=== PATIENT | male | born 1955 | race Caucasian/White ===

== ENCOUNTER 2018-10-08 09:41 | Day surgery (SDC) | payer OTHER ==
[~2018-10-08] VITALS: Ht 175.3 cm; Wt 102.1 kg
[~2018-10-08 09:41] MED LIST: FAMO40TA3 PO; LISI-542 PO; MULTCAP PO; NS 1,000 ML IV ONE
[2018-10-08] MEDS ORDERED: PROPOFOL 500 MG/50 ML VIAL As Ordered ONE (10:26)
[2018-10-08] MEDS ORDERED: fentaNYL 100 MCG/2 ML INJECTION (J3010) As Ordered ONE (10:27)
[2018-10-08] MEDS ORDERED: LIDOCAINE 2% INJ 100 MG/5 ML SDV (FOR ANES.) As Ordered ONE (10:36)
--- NOTE | 2018-10-08 11:32 | ROOR ---
Patient Name: Paul Calhoun Procedure Date: 10/08/2018 11:21 AM Date of : 1955 Age: 62 Room: [facility] Gender: Male Note Status: Finalized Procedure: Upper Endoscopy + Biopsies Indications: Heartburn, Exclusion of Adamson's esophagus Providers: Pete Tipton MD Referring MD: DARCY ORR DO Requesting Provider: Medicines: Monitored Anesthesia Care Complications: No immediate complications. Procedure: Pre-Anesthesia Assessment: - The heart rate, respiratory rate, oxygen saturations, blood pressure, adequacy of pulmonary ventilation, and response to care were monitored throughout the procedure. The Endoscope was introduced through the mouth, and advanced to the second part of duodenum. The upper GI endoscopy was accomplished without difficulty. The patient tolerated the procedure well. Findings: The Z-line was variable and was found 40 cm from the incisors. Multiple biopsies were obtained with cold forceps for evaluation to rule out Adamson's Esophagus randomly at the gastroesophageal junction. A small hiatal hernia was present. A few localized, small non-bleeding erosions were found in the gastric antrum. There were no stigmata of recent bleeding. Biopsies were taken with a cold forceps for Helicobacter pylori testing. The exam of the duodenum was otherwise normal. Impression: - Z-line variable, 40 cm from the incisors. - Small hiatal hernia. - Non-bleeding erosive gastropathy. Biopsied. - Multiple biopsies were obtained at the gastroesophageal junction. - The examination was otherwise normal. Recommendation: - Patient has a contact number available for emergencies. The signs and symptoms of potential delayed complications were discussed with the patient. Return to normal activities tomorrow. Written discharge instructions were provided to the patient. - High fiber diet. - Discharge patient to home. - Continue present medications. - Await pathology results. - Telephone GI clinic for pathology results in 1 week. - Repeat upper endoscopy for surveillance based on pathology results. - Return to referring physician. - The findings and recommendations were discussed with the patient's family. Pete Tipton MD Pete Tipton MD 10/08/2018 11:31:44 AM Electronically signed by Pete Tipton MD Number of Addenda: 0 Note Initiated On: 10/08/2018 11:21 AM Estimated Blood Loss: Estimated blood loss: none.
--- NOTE | 2018-10-08 11:57 | ROOR ---
Patient Name: Paul Calhoun Procedure Date: 10/08/2018 11:22 AM Date of : 1955 Age: 62 Room: [facility] Gender: Male Note Status: Finalized Procedure: Total Colonoscopy to Cecum + Cold Snare Polypectomy + Hemoclip Indications: Screening for colorectal malignant neoplasm, Last colonoscopy 10 years ago Providers: Pete Tipton MD Referring MD: DARCY ORR DO Requesting Provider: Medicines: Monitored Anesthesia Care Complications: No immediate complications. Procedure: Pre-Anesthesia Assessment: - The heart rate, respiratory rate, oxygen saturations, blood pressure, adequacy of pulmonary ventilation, and response to care were monitored throughout the procedure. The Colonoscope was introduced through the anus and advanced to the cecum, identified by appendiceal orifice and ileocecal valve. The colonoscopy was performed without difficulty. The patient tolerated the procedure well. The quality of the bowel preparation was excellent. Findings: The perianal and digital rectal examinations were normal. Non-bleeding internal hemorrhoids were found during retroflexion. The hemorrhoids were small and Grade I (internal hemorrhoids that do not prolapse). Scattered small-mouthed diverticula were found in the recto-sigmoid colon, sigmoid colon and descending colon. Two sessile polyps were found in the ascending colon. The polyps were small in size. These polyps were removed with a cold snare. Resection and retrieval were complete. To prevent bleeding after the polypectomy, one hemostatic clip was successfully placed (MR conditional). There was no bleeding at the end of the procedure. The exam was otherwise without abnormality on direct and retroflexion views. Impression: - Non-bleeding internal hemorrhoids. - Diverticulosis in the recto-sigmoid colon, in the sigmoid colon and in the descending colon. - Two small polyps in the ascending colon, removed with a cold snare. Resected and retrieved. Clip (MR conditional) was placed. - The examination was otherwise normal on direct and retroflexion views. - The exam was otherwise normal to the cecum. Recommendation: - Patient has a contact number available for emergencies. The signs and symptoms of potential delayed complications were discussed with the patient. Return to normal activities tomorrow. Written discharge instructions were provided to the patient. - High fiber diet. - Discharge patient to home. - Continue present medications. - Await pathology results. - Telephone GI clinic for pathology results in 1 week. - Repeat colonoscopy in 5 years for surveillance based on pathology results. - Return to referring physician. - The findings and recommendations were discussed with the patient's family. Pete Tipton MD Pete Tipton MD 10/08/2018 11:57:05 AM Electronically signed by Pete Tipton MD Number of Addenda: 0 Note Initiated On: 10/08/2018 11:22 AM Estimated Blood Loss: Estimated blood loss: none.
[2018-10-08 12:20] VITALS: BP 137/87
== END 2018-10-08 12:34 | disposition home or self-care (01) ==
LOC: M OPP 09:41
PROVIDERS: ATTEND Internal Medicine Gastroenterology
DX: Z12.11 Encounter for screening for malignant neoplasm of colon (principal); K64.0 First degree hemorrhoids; K57.30 Diverticulosis of large intestine without perforation or abscess without bleeding; D12.2 Benign neoplasm of ascending colon; R12 Heartburn; K22.8 Other specified diseases of esophagus; K44.9 Diaphragmatic hernia without obstruction or gangrene; K31.89 Other diseases of stomach and duodenum; I10 Essential (primary) hypertension; K57.32 Diverticulitis of large intestine without perforation or abscess without bleeding; K21.9 Gastro-esophageal reflux disease without esophagitis; Z79.899 Other long term (current) drug therapy; Z80.3 Family history of malignant neoplasm of breast
CPT/HCPCS: 43239; 45385; 88305; J3010

== ENCOUNTER 2020-05-20 10:58 | Emergency (ER) | payer OTHER ==
[~2020-05-20] VITALS: Ht 175.3 cm; Wt 107.8 kg
[~2020-05-20 10:58] MED LIST changes: -LISI-542 PO; +LISI-898 PO; -NS 1,000 ML IV ONE
[2020-05-20] MEDS ORDERED: AMLO1TAB24 (11:12)
[2020-05-20] MEDS ORDERED: ATOR1TAB19 (11:12)
--- NOTE | 2020-05-20 11:42 | REP ---
INDICATION: crush injury to 3rd digit COMPARISON: None. TECHNIQUE: AP, lateral, bilateral oblique views left hand. FINDINGS: Soft tissue injury overlies the 3rd digit distal phalanx. Osseous structures are intact. No acute fracture or dislocation. No subcutaneous emphysema or foreign body. IMPRESSION: Soft tissue injury at the 3rd DIP. No acute fracture or dislocation. <Electronically signed by Nolan Guo > 05/20/20 [id number]
[2020-05-20] MEDS ORDERED: INFANRIX VACCINE SYRINGE (DIPHTH/TET/ACEL PERTUS PEDIATRIC) (CPT 90700) IM ONE (12:10)
[2020-05-20] MEDS ORDERED: ACETAMINOPHEN 325 MG TAB PO ONE (12:10)
[2020-05-20] MEDS ORDERED: BOOSTRIX/ADACEL VACCINE (DIPHTH/PERTUSS/ACELL/TETANUS) 0.5ML SYR IM ONE (12:15)
[2020-05-20] MEDS ORDERED: LIDOCAINE 1% MDV 20ML VIAL SC ONE (12:15)
[2020-05-20] MEDS ORDERED: BACITRACIN OINTMENT 30GM TUBE TOP ONE (12:50)
[2020-05-20 13:07] VITALS: BP 153/85
== END 2020-05-20 13:09 | disposition home or self-care (01) ==
LOC: M ED 10:58
DX: S61.213A Laceration without foreign body of left middle finger without damage to nail, initial encounter (principal); W22.8XXA Striking against or struck by other objects, initial encounter; Y92.9 Unspecified place or not applicable; Y93.9 Activity, unspecified; Y99.0 Civilian activity done for income or pay; I10 Essential (primary) hypertension; E78.5 Hyperlipidemia, unspecified; K21.9 Gastro-esophageal reflux disease without esophagitis; Z79.899 Other long term (current) drug therapy

== ENCOUNTER → 2021-05-29 | Outpatient (CLI) | payer OTHER ==
[~2021-05-29] MED LIST changes: +AMLO1TAB24; +ATOR1TAB19; -LISI-898 PO; +LISI5TAB11 PO
== END ==
LOC: M ADAMS 13:09
PROVIDERS: ATTEND Chiropractor
DX: M54.50 Low back pain, unspecified (principal)

== ENCOUNTER → 2021-06-26 | Outpatient (CLI) | payer OTHER | LOC: M RAD 08:57 | PROVIDERS: ATTEND Physician Assistant | DX: N43.40 Spermatocele of epididymis, unspecified (principal) ==

== ENCOUNTER → 2022-04-12 | Outpatient (CLI) | payer OTHER ==
[2022-04-12 14:57] LABS: HIV 1&2 SCREEN CENTAUR NEGATIVE (NEGATIVE)
[2022-04-12 16:39] LABS: GC DNA AMPLIFICATION NEGATIVE (NEGATIVE)
[2022-04-12 21:45] LABS: ALBUMIN 4.3 G/DL (3.2-5.2); ALKALINE PHOSPHATASE 85 U/L (46-116); ALT/SGPT 35 U/L (7.0-40); AST/SGOT 31 U/L (<34); BILIRUBIN,TOTAL 0.5 MG/DL (0.3-1.2); BLOOD UREA NITROGEN 11 MG/DL (9-23); CALCIUM LEVEL 9.2 MG/DL (8.3-10.6); CARBON DIOXIDE LEVEL 26 MMOL/L (20-31); CHLORIDE LEVEL 103 MMOL/L (98-107); CREATININE FOR GFR 1.01 MG/DL (0.70-1.30); GLOMERULAR FILTRATION RATE > 60.0 (>49); GLUCOSE, FASTING 92 MG/DL (74-106); POTASSIUM SERUM 4.1 MMOL/L (3.5-5.1); SODIUM LEVEL 140 MMOL/L (136-145); TOTAL PROTEIN 7.4 G/DL (5.7-8.2)
[2022-04-13 04:07] LABS: HEPATITIS A IgG TOTAL Negative (Negative)
== END ==
LOC: M PLALAB 09:46
PROVIDERS: ATTEND Internal Medicine Infectious Disease
DX: Z11.4 Encounter for screening for human immunodeficiency virus [HIV] (principal); Z11.59 Encounter for screening for other viral diseases; Z86.19 Personal history of other infectious and parasitic diseases

== ENCOUNTER 2023-11-18 08:19 | Day surgery (SDC) | payer MEDICARE, OTHER ==
[~2023-11-18] VITALS: Ht 172.7 cm; Wt 98.9 kg
[~2023-11-18 08:19] MED LIST changes: +AMLO1TAB24 PO; +ATOR1TAB19 PO; +COQ150CH PO; +MAGN100T PO; +THERTAB52 PO; +TIRZ7.5P3 SQ; +VITA100093 PO
[2023-11-18] MEDS: NS 1,000 ML IV ONE (08:34)
[2023-11-18] MEDS ORDERED: fentaNYL 100 MCG/2 ML INJECTION As Ordered ONE (10:02)
[2023-11-18] MEDS ORDERED: propofoL 200 MG/20 ML VIAL As Ordered ONE (10:02)
[2023-11-18] MEDS ORDERED: LIDOCAINE 2% 100MG/5ML SDV (FOR ANES.) As Ordered ONE (10:07)
[2023-11-18 10:43] VITALS: TEMP 97.9
[2023-11-18 10:58] VITALS: BP 133/70; O2SAT 96
== END 2023-11-18 11:09 | disposition home or self-care (01) ==
LOC: M SDC 08:19
PROVIDERS: ATTEND Internal Medicine Gastroenterology
DX: D12.6 Benign neoplasm of colon, unspecified (principal); Z86.010 Personal history of colon polyps; K57.30 Diverticulosis of large intestine without perforation or abscess without bleeding; K44.9 Diaphragmatic hernia without obstruction or gangrene; R12 Heartburn; I10 Essential (primary) hypertension; E78.5 Hyperlipidemia, unspecified; K57.92 Diverticulitis of intestine, part unspecified, without perforation or abscess without bleeding; K21.9 Gastro-esophageal reflux disease without esophagitis; Z79.899 Other long term (current) drug therapy
CPT/HCPCS: 43239; 45380; 88305; J3010